=== PATIENT | female | born 1975 | race Caucasian/White ===

== ENCOUNTER 2017-10-06 09:02 | Emergency (ER) | payer SELFPAY ==
[~2017-10-06] VITALS: Ht 160 cm; Wt 67.0 kg
[~2017-10-06 09:02] MED LIST: FERR324T4 PO; NEUR400C PO; QUET300 PO; REME30TA PO
[2017-10-06 09:04] VITALS: BP 159/93; PULSE 88; RESP 15; TEMP 98.7; O2SAT 100
--- NOTE | 2017-10-06 10:36 | PD ---
HPI Chief Complaint: Medical Clearance Time Seen by Provider: 10:36 Travel History International Travel<30 days: No Contact w/Intl Traveler<30days: No Traveled to known affect area: No History of Present Illness HPI 41-year-old female came to the emergency room after having a reaction to Haldol. Patient says that she has been on Haldol in the past but usually would take it with Cogentin since she had a similar reaction. However Cogentin would allow her to tolerate the Haldol better. She got restarted 2 weeks ago and Cogentin was not prescribed along with it. She feels like she is locked up and having hard time moving as well as drooling. Her brother gave her Benadryl last night prior to 9 PM and that made her feel much better. However her brother insisted that she should come to the emergency room and hence she is here. Vital signs are stable. Haldol was started by Tristan Mora. She did call Tristan Mora regarding the yesterday and they asked her to come to the emergency room. [facility] Past Medical History Narrative Medical List of her past medical, surgical, social and family histories reviewed from the nursing note. Blood Disorders: No Bipolar Disorder: Yes (schizoaffective) Anxiety: Yes Depression: Yes Cancer: No Cardiovascular Problems: No COPD: No Cerebrovascular Accident: Yes Diminished Hearing: No Endocrine: No Genitourinary: Yes Hepatitis: Yes (hep c) Immune Disorder: No Kidney Stones: Yes Musculoskeletal: Yes Neurologic: Yes Psychiatric: Yes (BIPOLAR, schizo-affective disorder ) Reproductive: No Respiratory: Yes Migraines: Yes Seizures: Yes (CHILDHOOD) Ulcer: Yes ?: Not LMP: 09/2017 Menopausal: No : 4 Para: 1 Tubal Ligation: Yes Past Surgical History Section: Yes Gynecologic Surgery: Yes (C-SEC X2) Pacemaker: No Other Surgery: Yes (C-SEC) Social History Alcohol Use: Yes Tobacco Use: Yes (1-1.5 PPD ) Substance Use: No Allergies-Medications (Allergen,Severity, Reaction): Coded Allergies: tramadol (Unverified Allergy, Severe, THROAT SWELLING, 10/06/17) *MDRO Multi-Drug Resistant Organism (Unverified Adverse Reaction, Unknown , 05/05/16) MRSA (arm wound) - 2003 Comments List of her allergies reviewed from the nursing note. Reported Meds & Prescriptions Reported Meds & Active Scripts Active Benztropine (Benztropine Mesylate) 0.5 Mg Tab 0.5 Mg PO BID Reported Quetiapine (Quetiapine Fumarate) 300 Mg Tab 300 Mg PO HS Haloperidol 10 Mg Tab 10 Mg PO TID Prozac (Fluoxetine HCl) 20 Mg Cap 20 Mg PO DAILY Gabapentin 300 Mg Cap 300 Mg PO TID [place] Carbonate 300 Mg Tab 300 Mg PO TID Narrative Medication List of her home medications reviewed from the nursing note. Review of Systems Except as stated in HPI: all other systems reviewed are Neg Physical Exam Narrative GENERAL: Awake, alert, disheveled, no obvious distress SKIN: Focused skin assessment warm/dry. HEAD: Atraumatic. Normocephalic. EYES: Pupils equal and round. No scleral icterus. No injection or drainage. ENT: No nasal bleeding or discharge. Mucous membranes pink and moist. NECK: Trachea midline. No JVD. CARDIOVASCULAR: Regular rate and rhythm. No murmur appreciated. RESPIRATORY: No accessory muscle use. Clear to auscultation. Breath sounds equal bilaterally. GASTROINTESTINAL: Abdomen soft, non-tender, nondistended. Hepatic and splenic margins not palpable. MUSCULOSKELETAL: No obvious deformities. No clubbing. No cyanosis. No edema. NEUROLOGICAL: Awake and alert. No obvious cranial nerve deficits. Motor grossly within normal limits. Normal speech. PSYCHIATRIC: Appropriate mood and affect; insight and judgment normal. Data Data Last Documented VS Orders Orders Benztropine (Cogentin) (10/06/17 11:00) Ed Discharge Order (10/06/17 12:26) [facility] Medical Decision Making Medical Screen Exam Complete: Yes Emergency Medical Condition: Yes Medical Record Reviewed: Yes Differential Diagnosis Side effect of Haldol Narrative Course 12:23 PM patient was ordered for a dose of Cogentin here and a prescription to go home with. Apparently the pharmacy is having hard time getting the Cogentin. Trying to get it from one of the floors. As soon as she gets that she will be discharged. Procedures EKG Prior to Arrival: No Diagnosis Primary Impression: Medication side effect Referrals: Primary Care Physician Additional Instructions: Please take the medication as per the prescription direction. Return to ER if condition worsens or any other new concerns. Otherwise follow up with your psychiatrist Med/Other Pt SpecificInfo: Prescription(s) given Scripts Benztropine (Benztropine) 0.5 Mg Tab 0.5 MG PO BID, #20 TAB 0 Refills Prov: Viv Barakat MD 10/06/17 Disposition: 01 DISCHARGE HOME Condition: Stable Viv Barakat MD Oct 06, 2017 10:36
[2017-10-06] MEDS ORDERED: QUET1TAB10 PO (10:43)
[2017-10-06] MEDS ORDERED: HALO10TA PO (10:43)
[2017-10-06] MEDS ORDERED: GABA300C5 PO (10:43)
[2017-10-06] MEDS ORDERED: PROZ20CA11 PO (10:43)
[2017-10-06] MEDS ORDERED: LITH300T3 PO (10:43)
[2017-10-06] MEDS ORDERED: BENZTROPINE MESYLATE 1 MG TAB PO ONE (11:00)
[2017-10-06] MEDS ORDERED: BENZ0.5T PO (12:26)
== END 2017-10-06 13:00 | disposition left against medical advice (07) ==
LOC: NEPD 09:02
DX: R40.0 Somnolence (principal); T43.4X5A Adverse effect of butyrophenone and thiothixene neuroleptics, initial encounter
CPT/HCPCS: 99283

== ENCOUNTER 2017-10-25 13:09 | Emergency (ER) | payer SELFPAY ==
[~2017-10-25] VITALS: Ht 157.5 cm; Wt 70.0 kg
[~2017-10-25 13:09] MED LIST changes: +BENZ0.5T PO; -FERR324T4 PO; +GABA300C5 PO; +HALO10TA PO; +LITH300T3 PO; -NEUR400C PO; +PROZ20CA11 PO; +QUET1TAB10 PO; -QUET300 PO; -REME30TA PO
[2017-10-25 13:16] VITALS: BP 157/99; PULSE 72; RESP 12; TEMP 97.8; O2SAT 95
--- NOTE | 2017-10-25 13:28 | PD ---
HPI Chief Complaint: OD/ Ingestion Time Seen by Provider: 13:25 Travel History International Travel<30 days: No Contact w/Intl Traveler<30days: No Traveled to known affect area: No History of Present Illness HPI Patient is a 41-year-old female who presents the emergency department for evaluation of altered mental status. The patient apparently ingested a large amount of a unknown white powdery substance and then was found to be unconscious. EMS states that when they went to the call paramedics were bag valve masking her and upon obtaining IV access the patient sat up and suddenly regained consciousness. She was transported, the only intervention she had prior to arrival was [id number] for a few moments. The patient is certainly altered on arrival and is very slow to respond however she states that she ingested a large amount of heroin. PFSH Past Medical History Blood Disorders: No Bipolar Disorder: Yes (schizoaffective) Anxiety: Yes Depression: Yes Cancer: No Cardiovascular Problems: No COPD: No Cerebrovascular Accident: Yes Diminished Hearing: No Endocrine: No Genitourinary: Yes Hepatitis: Yes (hep c) Immune Disorder: No Kidney Stones: Yes Musculoskeletal: Yes Neurologic: Yes Psychiatric: Yes (BIPOLAR, schizo-affective disorder ) Reproductive: No Respiratory: Yes Migraines: Yes Seizures: Yes Ulcer: Yes Tetanus Vaccination: < 5 Years Influenza Vaccination: No ?: Not LMP: 09/20 Menopausal: No : 4 Para: 1 Tubal Ligation: Yes Past Surgical History Section: Yes Gynecologic Surgery: Yes (C-SEC X2) Pacemaker: No Other Surgery: Yes (C-SEC) Social History Alcohol Use: No Tobacco Use: Yes (1-1.5 PPD ) Substance Use: Yes ("WHATEVER") Allergies-Medications (Allergen,Severity, Reaction): Coded Allergies: tramadol (Unverified Allergy, Severe, THROAT SWELLING, 10/25/17) *MDRO Multi-Drug Resistant Organism (Unverified Adverse Reaction, Unknown , 05/05/16) MRSA (arm wound) - 2003 Reported Meds & Prescriptions Reported Meds & Active Scripts Active Benztropine (Benztropine Mesylate) 0.5 Mg Tab 0.5 Mg PO BID Reported Quetiapine (Quetiapine Fumarate) 300 Mg Tab 300 Mg PO HS Haloperidol 10 Mg Tab 10 Mg PO TID Prozac (Fluoxetine HCl) 20 Mg Cap 20 Mg PO DAILY Gabapentin 300 Mg Cap 300 Mg PO TID [place] Carbonate 300 Mg Tab 300 Mg PO TID Review of Systems Except as stated in HPI: all other systems reviewed are Neg Physical Exam Narrative GENERAL: Well-developed well-nourished no obvious distress appears much older than stated age, somnolent bordering on lethargic SKIN: Focused skin assessment warm/dry. HEAD: Atraumatic. Normocephalic. EYES: Pupils equal and round. No scleral icterus. No injection or drainage. ENT: No nasal bleeding or discharge. Mucous membranes pink and moist. NECK: Trachea midline. No JVD. CARDIOVASCULAR: Regular rate and rhythm. No murmur appreciated. RESPIRATORY: No accessory muscle use. Clear to auscultation. Breath sounds equal bilaterally. GASTROINTESTINAL: Abdomen soft, non-tender, nondistended. Hepatic and splenic margins not palpable. MUSCULOSKELETAL: No obvious deformities. No clubbing. No cyanosis. No edema. NEUROLOGICAL: Awake and alert. No obvious cranial nerve deficits. Motor grossly within normal limits. Normal speech. PSYCHIATRIC: Appropriate mood and affect; insight and judgment normal. Data Data Last Documented VS Vital Signs Date Time Temp Pulse Resp B/P (MAP) Pulse Ox O2 Delivery O2 Flow Rate FiO2 10/25/17 19:50 89 18 134/90 (105) 99 10/25/17 15:16 Room Air 10/25/17 13:16 97.8 Orders Orders Basic Metabolic Panel (Bmp) (10/25/17 13:24) Complete Blood Count With Diff (10/25/17 13:24) Iv Access Insert/Monitor (10/25/17 13:24) Ecg Monitoring (10/25/17 13:24) Oximetry (10/25/17 13:24) Sodium Chloride 0.9% Flush (Ns Flush) (10/25/17 13:30) Alcohol (Ethanol) (10/25/17 13:24) Tylenol (Acetaminophen) (10/25/17 13:24) Salicylates (Aspirin) (10/25/17 13:24) Chest, Single Ap (10/25/17 ) Ed Discharge Order (10/25/17 19:38) Labs Laboratory Tests Test 10/25/17 13:40 White Blood Count 7.8 TH/MM3 Red Blood Count 5.02 MIL/MM3 Hemoglobin 13.8 GM/DL Hematocrit 42.9 % Mean Corpuscular Volume 85.6 FL Mean Corpuscular Hemoglobin 27.6 PG Mean Corpuscular Hemoglobin Concent 32.2 % Red Cell Distribution Width 18.5 % Platelet Count 240 TH/MM3 Mean Platelet Volume 8.5 FL Neutrophils (%) (Auto) 74.1 % Lymphocytes (%) (Auto) 16.7 % Monocytes (%) (Auto) 6.5 % Eosinophils (%) (Auto) 2.2 % Basophils (%) (Auto) 0.5 % Neutrophils # (Auto) 5.8 TH/MM3 Lymphocytes # (Auto) 1.3 TH/MM3 Monocytes # (Auto) 0.5 TH/MM3 Eosinophils # (Auto) 0.2 TH/MM3 Basophils # (Auto) 0.0 TH/MM3 CBC Comment DIFF FINAL Differential Comment Blood Urea Nitrogen 12 MG/DL Creatinine 0.88 MG/DL Random Glucose 101 MG/DL Calcium Level 9.0 MG/DL Sodium Level 136 MEQ/L Potassium Level 4.6 MEQ/L Chloride Level 105 MEQ/L Carbon Dioxide Level 18.5 MEQ/L Anion Gap 13 MEQ/L Estimat Glomerular Filtration Rate 72 ML/MIN Salicylates Level 2.9 MG/DL Acetaminophen Level LESS THAN 2.0 MCG/ML Ethyl Alcohol Level 8 MG/DL MDM Medical Decision Making Medical Screen Exam Complete: Yes Emergency Medical Condition: Yes Differential Diagnosis Heroin overdose, Tylenol overdose unlikely, salicylate overdose unlikely, altered mental status. Narrative Course Patient was roomed in [facility], initially she was observed for about 3 hours on monitoring and she had no desaturation, she still was somewhat altered and was moved to the back wall to be observed for an additional hour for possible Tylenol repeat. Sometime during her observation status patient became much more alert and awake and is ambulatory to the bathroom. My reassessed the patient is adamant she did not take any Tylenol or is just "stupid" and took too much heroin orally today. At this time the patient appears well, she protecting her airway there is no indication further management in the emergency department. I discussed with her at length. Using illicit substances and IV drugs. She stable for discharge. Diagnosis Primary Impression: Heroin overdose Referrals: [facility] Disposition: 01 DISCHARGE HOME Condition: Stable William Li MD Oct 25, 2017 13:28
[2017-10-25] MEDS ORDERED: SODIUM CHLORIDE 0.9% FLUSH 10 ML FLUSH IVF PRN (13:30)
[2017-10-25 14:16] LABS: AUTOMATED NEUTROPHIL # 5.8 TH/MM3 (1.8-7.7); BASOPHIL % 0.5 % (0.0-2.0); EOSINOPHIL # 0.2 TH/MM3 (0-0.4); EOSINOPHIL % 2.2 % (0.0-4.0); HEMATOCRIT 42.9 % (35.0-46.0); HEMOGLOBIN 13.8 GM/DL (11.6-15.3); LYMPH % 16.7 % (9.0-44.0); LYMPHOCYTE # 1.3 TH/MM3 (1.0-4.8); MEAN CELL VOLUME 85.6 FL (80.0-100.0); MEAN CORPUSCULAR HEMOGLOBIN 27.6 PG (27.0-34.0); MEAN CORPUSCULAR HGB CONC 32.2 % (32.0-36.0); MEAN PLATELET VOLUME 8.5 FL (7.0-11.0); MONO % 6.5 % (0.0-8.0); MONOCYTE # 0.5 TH/MM3 (0-0.9); NEUT % 74.1 % (16.0-70.0); PLATELET COUNT 240 TH/MM3 (150-450); RED BLOOD COUNT 5.02 MIL/MM3 (4.00-5.30); RED CELL DISTRIBUTION WIDTH 18.5 % (11.6-17.2); WHITE BLOOD COUNT 7.8 TH/MM3 (4.0-11.0)
[2017-10-25 14:23] LABS: BICARBONATE 18.5 MEQ/L (21.0-32.0); BLOOD UREA NITROGEN 12 MG/DL (7-18); CHLORIDE 105 MEQ/L (98-107); CREATININE 0.88 MG/DL (0.50-1.00); GLOMERULAR FILTRATION RATE 72 ML/MIN (>89); GLUCOSE,RANDOM 101 MG/DL (74-106); SODIUM (NA) 136 MEQ/L (136-145)
[2017-10-25 14:29] LABS: ACETAMINOPHEN LESS THAN 2.0 MCG/ML (10.0-30.0)
[2017-10-25 15:15] VITALS: BP 141/94; PULSE 74; RESP 14; O2SAT 99
[2017-10-25 15:16] VITALS: O2SAT 99
--- NOTE | 2017-10-25 15:30 | RADRPT ---
EXAM DATE/TIME: 10/25/2017 15:16 [place] COMPARISON: No previous studies available for comparison. INDICATIONS : Possible overdose- Apsiration. Shortness of breath. MEDICAL HISTORY : None. SURGICAL HISTORY : None. ENCOUNTER: Initial ACUITY: 1 day PAIN SCORE: Non-responsive. LOCATION: Bilateral chest FINDINGS: Minimal bibasilar parenchymal changes. The heart and pulmonary vascularity are normal. The portion of the bony skeleton visualized is unremarkable. CONCLUSION: Minimal bibasilar nonspecific parenchymal changes. Radames Marcum MD FACR on October 25, 2017 at 15:27 Board Certified Radiologist. This report was verified electronically.
[2017-10-25 19:50] VITALS: BP 134/90
== END 2017-10-25 19:56 | disposition home or self-care (01) ==
LOC: NEPC 13:09 → NEDAMB 19:56
DX: T40.1X1A Poisoning by heroin, accidental (unintentional), initial encounter (principal); F25.0 Schizoaffective disorder, bipolar type; R56.9 Unspecified convulsions; F17.200 Nicotine dependence, unspecified, uncomplicated; Z79.899 Other long term (current) drug therapy; Z88.5 Allergy status to narcotic agent; Z86.73 Personal history of transient ischemic attack (TIA), and cerebral infarction without residual deficits; Z87.442 Personal history of urinary calculi; Z86.19 Personal history of other infectious and parasitic diseases
CPT/HCPCS: 71045; 80048; 80307; 85025; 99284